=== PATIENT | female | born 1995 | race Caucasian/White ===

== ENCOUNTER 2021-11-02 15:15 | Outpatient (CLI) | payer MEDICAID | END 2021-11-02 20:31 | disposition home or self-care (01) | LOC: MUS 15:15 | PROVIDERS: ATTEND Nurse Practitioner Family | DX: Z34.92 Encounter for supervision of normal pregnancy, unspecified, second trimester (principal) | CPT/HCPCS: 76805; Q0092 ==

== ENCOUNTER 2023-05-04 16:15 | Emergency (ER) | payer MEDICAID, OTHER ==
[~2023-05-04] VITALS: Ht 177.8 cm; Wt 65.8 kg
[2023-05-04 16:45] VITALS: BP 110/61; PULSE 65; RESP 18; TEMP 97.7; O2SAT 98
[2023-05-04] MEDS: ACETAMINOPHEN EXTRA STRENGTH 500 MG TAB PO ONE (19:03)
[2023-05-04] MEDS ORDERED: IBUP-2213 PO (20:21)
[2023-05-04] MEDS ORDERED: CYCL-711 PO (20:21)
[2023-05-04] MEDS: CYCLOBENZAPRINE 10 MG TAB PO ONE (20:49)
== END 2023-05-04 21:47 | disposition home or self-care (01) ==
LOC: MED 16:15
DX: S66.912A Strain of unspecified muscle, fascia and tendon at wrist and hand level, left hand, initial encounter (principal); S66.911A Strain of unspecified muscle, fascia and tendon at wrist and hand level, right hand, initial encounter; S46.912A Strain of unspecified muscle, fascia and tendon at shoulder and upper arm level, left arm, initial encounter; S09.90XA Unspecified injury of head, initial encounter; S60.222A Contusion of left hand, initial encounter; Z79.899 Other long term (current) drug therapy; Z88.0 Allergy status to penicillin; X58.XXXA Exposure to other specified factors, initial encounter; Y92.89 Other specified places as the place of occurrence of the external cause; Y93.89 Activity, other specified; Y99.8 Other external cause status
CPT/HCPCS: 70450; 73030; 73110; 73130; 99284